=== PATIENT | female | born 1945 | race Caucasian/White ===

== ENCOUNTER → 2016-06-10 | Outpatient (CLI) | payer MEDICARE, MEDICAID ==
--- NOTE | 2016-06-13 05:26 | RADIOLOGY REPORT PS360 ---
MRI-C-SPINE W/O, MRI-3D RENDERING/MYELOGRAM HISTORY: Neck pain, right-sided neck pain DISORDER OF NECK, OSTEOARTHRITIS OF SPINE W/ RADICLUPATHY ORDERING PHYSICIAN: Rafa Howard MD PATIENT AGE: 71 years COMPARISON: None TECHNIQUE: Standard multiplanar multiecho sequences are performed without contrast. 3-D MIP and myelographic images are also rendered and reviewed FINDINGS: The craniocervical junction has an unremarkable appearance. There is normal alignment. There is multilevel degenerative disc disease. There is mild degree of motion artifact which does obscure fine detail. C2-C3: Unremarkable. Para of C3-C4: Mild degenerative disc disease. C4-C5: Mild degenerative disc disease. C5-C6: Moderate to severe degenerative disc disease with small left paracentral and foraminal disc osteophyte complex with mild left left lateral recess and foraminal narrowing. C6-C7: Moderate degenerative disc disease with minimal endplate hypertrophic change. C7-T1: 2 to 3 mm anterolisthesis of C7. There is degenerative disc disease in the upper thoracic spine as well with 2 mm anterolisthesis of T2 on T3. IMPRESSION: 1. Multilevel spondylosis of the cervical spine with degenerative disc disease which is worse at C5-C6 and C6-C7 with small broad-based central, left paracentral and left foraminal disc osteophyte complex at C5-C6 with mild left lateral recess and foraminal narrowing. 2. No canal stenosis or disc herniation.
== END ==
LOC: RAD 14:45
DX: M53.82 Other specified dorsopathies, cervical region (principal); M47.892 Other spondylosis, cervical region; M12.88 Other specific arthropathies, not elsewhere classified, other specified site